=== PATIENT | female | born 1945 | race Caucasian/White ===

== ENCOUNTER 2024-02-04 19:39 | Emergency (ER) | payer MEDICARE, SELFPAY ==
--- NOTE | 2024-02-04 20:13 | PC.NURSE ---
NO ANSWER AT ER LOBBY OR OUTSIDE ER TO BE TRIAGE.
--- NOTE | 2024-02-04 20:33 | PC.NURSE ---
NO ANSWER AT ER LOBBY OR OUTSIDE ER TO BE TRIAGE.
--- NOTE | 2024-02-04 20:42 | PC.NURSE ---
NO NASWER AT ER LOBBY OR OUTSIDE ER TO BE TRIAGE
== END 2024-02-04 20:43 | disposition left against medical advice (07) ==
PROVIDERS: Emergency Provider Emergency Medicine
DX: Z53.21 Procedure and treatment not carried out due to patient leaving prior to being seen by health care provider (principal)